=== PATIENT | female | born 1970 | race Hispanic/Latino ===

== ENCOUNTER → 2022-05-16 | Outpatient (CLI) | payer BC | END | disposition home or self-care (01) | LOC: RAH 14:44 | PROVIDERS: ATTEND Internal Medicine Endocrinology, Diabetes & Metabolism | DX: E04.2 Nontoxic multinodular goiter (principal) | CPT/HCPCS: 76536 ==

== ENCOUNTER → 2023-05-02 | Outpatient (CLI) | payer BC | END | disposition home or self-care (01) | LOC: RAH 12:19 | PROVIDERS: ATTEND Internal Medicine Endocrinology, Diabetes & Metabolism | DX: E04.2 Nontoxic multinodular goiter (principal) | CPT/HCPCS: 76536 ==